=== PATIENT | female | born 1950 | race Caucasian/White ===

== ENCOUNTER 2021-10-25 14:55 | Outpatient (REF) | payer MEDICARE, SELFPAY ==
[2021-10-25 19:45] LABS: ALT 26 U/L (14-59); AST 19 U/L (15-37); Albumin 3.5 g/dL (3.4-5.0); Alkaline Phosphatase 83 U/L (46-116); Anion Gap 9.1 mmol/L (3-11); BUN 26 mg/dL (7-18); Bilirubin, Total 0.4 mg/dL (0.2-1.0); CO2 27.9 mmol/L (21.0-32.0); Calcium 9.2 mg/dL (8.5-10.1); Chloride 103 mmol/L (98-107); Estimated GFR 54.35 (mL/min/1.73m2); Glucose 83 mg/dL (74-106); Potassium 3.8 mmol/L (3.5-5.1); Sodium 140 mmol/L (136-145); Total Protein 6.8 g/dL (6.4-8.2)
== END 2021-10-25 14:56 | disposition home or self-care (01) ==
LOC: NCHCN 14:55
PROVIDERS: Visit Provider Internal Medicine
DX: I10 Essential (primary) hypertension (principal); E78.5 Hyperlipidemia, unspecified
CPT/HCPCS: 80053

== ENCOUNTER 2021-10-28 16:21 | Outpatient (REF) | payer MEDICARE, SELFPAY ==
--- NOTE | 2021-10-28 13:30 | PAPNONF_PTH ---
PATIENT: Khushi Parisi LOC: [facility]#:[id number] AGE/SX: 71/F ROOM: RE10/28/[address]: Sindy Issa : 1950 BED: DIS: 10/28/2021 SPEC #: [id number] RECD: 10/29/21 12:37 STATUS: YAKOV REFredis #: [id number] [place]: 10/28/21 13:[address]: Amparo Issalaide DEPT: [facility] Cytology RECD BY: Geovanna Alvarado ENTERED: 10/29/21 12:38 SP TYPE: HERNANDO WICK DR: Unknown,Unknown Tissues: 1 - BODY FLUID CYTO(SPUTUM/URINE)[facility] Procedures: BODY FLUID CYTO(URINE/SPUTUM) Comments: [id number] (TOTAL VOLUME = 30 ml) (30 ml URINE & 30 ml CYTOLYT ADDED)
[2021-10-28 21:00] LABS: Bilirubin Negative (Negative); Blood Trace-intact (Negative); Clarity Clear (Clear); Glucose Negative (Negative); Ketones Negative (Negative); Leukocyte Esterase Small (Negative); Nitrite Negative (Negative); Urobilinogen 0.2 EU/dL (Up TO 0.2); pH 6.5 (5-8)
[2021-10-28 21:18] LABS: Bacteria Few HPF (Negative); C & S Indicated? Yes; Casts Negative LPF (Negative); Crystals Negative HPF (Negative); Epithelial Cells Few HPF (Negative); Mucus Negative (Negative)
[2021-10-28 21:19] LABS: Other Cells Rare Transitional (Negative)
== END 2021-10-28 16:22 | disposition home or self-care (01) ==
LOC: NCHCN 16:21
PROVIDERS: Visit Provider Nurse Practitioner Family
DX: R31.9 Hematuria, unspecified (principal)
CPT/HCPCS: 87077; 81003; 81015; 87086; 87186; 88104

== ENCOUNTER 2021-11-04 00:04 | Outpatient (CLI) | payer MEDICARE, SELFPAY ==
--- NOTE | 2021-11-04 09:15 | DI.NM_ITS ---
APPROVED REPORT Exam: Exercise Treadmill Patient Location: Out-Patient Room/Bed: Stress Nurse: Bren Chambers RN Ordering Provider:OLIVE CLEMENTE, Contact Number: [phone] BMI: 30.17 Baseline Rhythm: Sinus Rhythm Comment: Occasional PVCs, flipped T waves lead III Indications: Exertional angina Medical History Medical History: Hypertension, hyperlipidemia, prediabetes, obesity Cardiac Medications: Metoprolol succinate, atorvastatin, aspirin, hydrochlorothiazide, losartan Allergies: NKA Cardiac Risk Factors: Hypertension, hyperlipidemia, prediabetes, obesity, family hx Previous Cardiac Procedures: None Pretest Chest Pain Characteristics: None Exercise History: Indeterminate Physical Disabilities: None Lung Sounds: Clear to auscultation Heart Sounds: Regular Stress Test Details Test: Exercise stress testing was performed using a Boyd protocol. Nuclear Acquisition: Rest Tc-99m/Stress Tc-99m 1 day Rest Isotope: Tc-99m Sestamibi. Dose: 10.5 Date: 11/04/2021 Injection Time: 0930 Stress Isotope: Tc-99m Sestamibi. Dose: 31.3 Date: 11/04/2021 Injection Time: 1127 HR Resting HR Supine: 63 bpm Max Heart Rate (APMHR): 147.897294 bpm Resting HR Standin bpm Target HR (85% APMHR): 124.850298 bpm Max HR Achieved: 126 bpm % of APMHR: 85.71 Recovery HR: 68 bpm HR response to stress: Normal HR response to stress Comment: Metoprolol succinate held for 48 hrs BP Resting BP Supine: 132/80 mmHg Resting BP Standin/84 mmHg Max BP: 142/84 mmHg Recovery BP: 118/72 mmHg BP response to stress: Normal blood pressure response to stress. ECG Resting ECG: Sinus Rhythm Ectopy: Occasional PVCs Comment: Flipped T waves lead III Stress ECG: Sinus Tachycardia ST Change: No significant ST segment changes noted Arrhythmia: None Recovery ECG: Sinus Rhythm Recovery ST Change: Downsloping ST depression, Horizontal ST depression Lead(s): II, aVF, V2-V6 Recovery ST Deviation: 1-2 mm Recovery Arrhythmia: Rare PAC, occasional PVCs, burst of bigeminy Comment: ST changes return to baseline by minute 12 in recovery Clinical Reason for Termination: Fatigue, Dyspnea Stress Symptoms: General Fatigue, Dyspnea Exercise duration: 4 min05 sec Highest Stage Reached: Stage 2: 2.5 mph at 12% grade. Exercise capacity: 5.93 METs Yancey Treadmill Score: 3.1 Rate Pressure Product: [id number] Stress ECG Conclusion 1. Resting electrocardiogram was within normal limits 2. Patient exercised on the Boyd protocol and completed a workload of 5.93 METS, stopping due to fat igue and shortness of breath 3. Normal hemodynamic response to exercise. The patient achieved 85% of predicted heart rate for age 4. EKG at peak exercise was notable for artifact 5. EKG in recovery showed 1 to [address] depression in leads I to aVL V3 through V6 consist ent with myocardial ischemia 6. STs had returned to baseline by minute 12 recovery 7. There were no significant dysrhythmias Yancey Treadmill Score is 3.1 which is Moderate risk. Stress Test Summary STAGE Time (mins) Speed (mph) Grade (%) HR BP SYMPTOMS METS Supine 63 132/80 Standing 74 142/84 SpO2 97% 1 3 1.7 10 121 136/82 Moderate SOB, SpO2 94% 4.6 2 6 2.5 12 125 Moderate SOB, SpO2 94% 7 1 min recovery 112 140/78 Mild SOB, SpO2 98% 3 min recovery 79 132/72 Mild SOB, SpO2 98% 6 min recovery 79 118/72 SOB resolved, SpO2 98% 9 min recovery 72 SpO2 98% 12 min recovery 68 SpO2 98% MPI Conclusion There is ischemia of the posterior lateral wall. There are no areas of infarction EF 51% with posterior lateral hypokinesis Radiologist Interpretation Radiologist agrees with Revenue Manager's Interpretation. Radiologist Interpretation by: Manisha Simmons MD Interpretation Date/Time: 11/04/2021 16:31:37
== END 2021-11-04 00:24 ==
PROVIDERS: Visit Provider Internal Medicine
DX: I20.8 Other forms of angina pectoris (principal); I49.3 Ventricular premature depolarization; I10 Essential (primary) hypertension; R73.03 Prediabetes; E66.9 Obesity, unspecified; E78.5 Hyperlipidemia, unspecified; Z82.49 Family history of ischemic heart disease and other diseases of the circulatory system
CPT/HCPCS: 78452; 93016; 93018; 93017

== ENCOUNTER 2021-12-06 13:17 | Outpatient (REF) | payer MEDICARE, SELFPAY ==
[2021-12-06 21:09] LABS: HGB 9.1 g/dL (11.2-15.7); MCH 31.5 pg (27.0-33.0); MCHC 31.4 % (32.0-36.0); MCV 100.3 fL (80-95); MPV 10.8 fL (8.0-11.0); Platelet Count 465 10^3/uL (130-400); RBC 2.89 10^6/uL (3.93-5.22); RDW 17.3 % (11.7-14.6); RDW-SD 62.1 fL
[2021-12-06 21:35] LABS: ALT 25 U/L (14-59); Anion Gap 10.3 mmol/L (3-11); BUN 30 mg/dL (7-18); CO2 26.7 mmol/L (21.0-32.0); CREATININE 1.3 mg/dL (0.55-1.02); Calcium 8.7 mg/dL (8.5-10.1); Calculated LDL 72 mg/dL (<100); Chloride 102 mmol/L (98-107); Cholesterol 135 mg/dL (<200); Estimated GFR 40.15 (mL/min/1.73m2); Glucose 102 mg/dL (74-106); HDL Cholesterol 47 mg/dL (40-60); Potassium 4.2 mmol/L (3.5-5.1); Sodium 139 mmol/L (136-145); Triglyceride 84 mg/dL (<150)
== END 2021-12-06 13:18 | disposition home or self-care (01) ==
LOC: NCHCN 13:17
PROVIDERS: Visit Provider Internal Medicine
DX: L40.9 Psoriasis, unspecified (principal); G47.00 Insomnia, unspecified
CPT/HCPCS: 80048; 80061; 85027; 84460

== ENCOUNTER 2021-12-18 18:05 | Outpatient (REF) | payer MEDICARE, SELFPAY ==
[2021-12-18 21:55] LABS: HCT 33.8 % (36.0-46.0); HGB 10.3 g/dL (11.2-15.7); MCH 29.8 pg (27.0-33.0); MCHC 30.5 % (32.0-36.0); MCV 97.7 fL (80-95); MPV 10.8 fL (8.0-11.0); Platelet Count 376 10^3/uL (130-400); RBC 3.46 10^6/uL (3.93-5.22); RDW 15.4 % (11.7-14.6); RDW-SD 54.7 fL; WBC 5.91 10^3/uL (4.4-10.8)
[2021-12-18 21:57] LABS: ESR 43 mm/hr (0-30)
[2021-12-18 22:05] LABS: Anion Gap 11.1 mmol/L (3-11); BUN 30 mg/dL (7-18); C-Reactive Protein 0.52 mg/dL (0.0-0.3); CO2 24.9 mmol/L (21.0-32.0); CREATININE 1.1 mg/dL (0.55-1.02); Calcium 9.5 mg/dL (8.5-10.1); Chloride 106 mmol/L (98-107); Estimated GFR 48.69 (mL/min/1.73m2); Glucose 88 mg/dL (74-106); Potassium 4.5 mmol/L (3.5-5.1); Sodium 142 mmol/L (136-145)
== END 2021-12-18 18:06 | disposition home or self-care (01) ==
LOC: NCHCN 18:05
PROVIDERS: Visit Provider Internal Medicine
DX: Z95.1 Presence of aortocoronary bypass graft (principal); I10 Essential (primary) hypertension; E78.5 Hyperlipidemia, unspecified
CPT/HCPCS: 80048; 85027; 85652; 86140

== ENCOUNTER 2022-02-28 15:49 | Outpatient (REF) | payer MEDICARE, SELFPAY ==
[2022-02-28 18:55] LABS: HCT 41.1 % (36.0-46.0); HGB 13.4 g/dL (11.2-15.7); MCH 29.1 pg (27.0-33.0); MCHC 32.6 % (32.0-36.0); MCV 89 fL (80-95); Platelet Count 214 10^3/uL (130-400); RBC 4.61 10^6/uL (3.93-5.22); RDW 15.1 % (11.7-14.6); RDW-SD 49.2 fL; WBC 6.99 10^3/uL (4.4-10.8)
[2022-02-28 19:38] LABS: Anion Gap 4.2 mmol/L (3-11); BUN 21 mg/dL (7-18); CO2 26.8 mmol/L (21.0-32.0); Calcium 9.1 mg/dL (8.5-10.1); Chloride 106 mmol/L (98-107); Glucose 123 mg/dL (74-106); Potassium 3.7 mmol/L (3.5-5.1); Sodium 137 mmol/L (136-145)
== END 2022-02-28 15:50 | disposition home or self-care (01) ==
LOC: NCHCN 15:49
PROVIDERS: Visit Provider Internal Medicine
DX: I10 Essential (primary) hypertension (principal); E78.5 Hyperlipidemia, unspecified; G47.00 Insomnia, unspecified
CPT/HCPCS: 80048; 85027; 84443

== ENCOUNTER 2022-03-07 15:29 | Outpatient (REF) | payer MEDICARE, SELFPAY ==
[2022-03-07 18:55] LABS: Bacteria Many HPF (Negative); Crystals Mod Calcium Oxalate HPF (Negative); Epithelial Cells Rare HPF (Negative); RBC 0-2 HPF (0-2); WBC 0-2 HPF (0-5)
[2022-03-07 18:56] LABS: C & S Indicated? Yes; Mucus Trace (Negative); Other Cells Rare Renal (Negative)
== END 2022-03-07 15:30 | disposition home or self-care (01) ==
LOC: NCHCN 15:29
PROVIDERS: Visit Provider Internal Medicine
DX: R31.9 Hematuria, unspecified (principal)
CPT/HCPCS: 81015; 87086

== ENCOUNTER 2022-03-20 17:20 | Outpatient (REF) | payer MEDICARE, SELFPAY | END 2022-03-20 17:21 | disposition home or self-care (01) | LOC: NCHCN 17:20 | PROVIDERS: Visit Provider Nurse Practitioner Family | DX: R31.9 Hematuria, unspecified (principal) | CPT/HCPCS: 87086 ==

== ENCOUNTER 2022-03-24 15:59 | Outpatient (REF) | payer MEDICARE, SELFPAY ==
[2022-03-24 20:03] LABS: ESR 78 mm/hr (0-30); HCT 39.6 % (36.0-46.0); HGB 12.9 g/dL (11.2-15.7); MCH 27.7 pg (27.0-33.0); MCHC 32.6 % (32.0-36.0); MCV 85 fL (80-95); MPV 12.4 fL (8.0-11.0); Platelet Count 194 10^3/uL (130-400); RBC 4.65 10^6/uL (3.93-5.22); RDW 18.1 % (11.7-14.6); RDW-SD 55.9 fL
[2022-03-24 20:16] LABS: C-Reactive Protein 3.95 mg/dL (0.0-0.3)
== END 2022-03-24 16:00 | disposition home or self-care (01) ==
LOC: NCHCN 15:59
PROVIDERS: Visit Provider Internal Medicine
DX: M35.3 Polymyalgia rheumatica (principal)
CPT/HCPCS: 85027; 85652; 86140

== ENCOUNTER 2023-04-09 15:40 | Outpatient (REF) | payer MEDICARE, SELFPAY ==
[2023-04-09 20:44] LABS: Bilirubin Negative (Negative); Blood Negative (Negative); Clarity Clear (Clear); Glucose Negative (Negative); Ketones Negative (Negative); Leukocyte Esterase Trace (Negative); Nitrite Negative (Negative); Urobilinogen 0.2 mg/dL (Up to 0.2)
[2023-04-09 20:55] LABS: Bacteria Few HPF (Negative); C & S Indicated? No/Sq. Contamination; Casts Negative LPF (Negative); Crystals Negative HPF (Negative); Epithelial Cells Moderate HPF (Negative); Mucus Negative (Negative); RBC 0-2 HPF (0-2)
== END 2023-04-09 15:41 | disposition home or self-care (01) ==
LOC: NCHCN 15:40
PROVIDERS: Visit Provider Nurse Practitioner Family
DX: R35.0 Frequency of micturition (principal)
CPT/HCPCS: 81003; 81015